=== PATIENT | female | born 1975 | race Caucasian/White ===

== ENCOUNTER 2020-03-14 12:35 | Inpatient (IN) | payer SELFPAY ==
[2020-03-14 12:37] VITALS: BP 102/80; PULSE 101; RESP 16; TEMP 36.6; O2SAT 97; BMI 21.6
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
[2020-03-14 12:51] VITALS: O2SAT 95
[2020-03-14 13:28] LABS: HCG Qualitative Urine. Negative (Negative)
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
--- NOTE | 2020-03-14 13:37 | PC.NURSE ---
pt continues to tell nursing staff [facility] contacted and she has not been accepted at their facility at this time
[2020-03-14] MEDS: LORazepam 2 mg Tablet PO (13:42)
--- NOTE | 2020-03-14 13:47 | PC.NURSE ---
pt tearful at this time. pt states she will stay for admission into stress unit. ed physician notified. security remains at bedside for pt's safety and staff safety
[2020-03-14] MEDS: nicotine 21 mg Patch 1 PATCH TRANSDERMA (13:59)
[2020-03-14 14:01] VITALS: PULSE 110; RESP 20; O2SAT 97
[2020-03-14 14:25] LABS: Basophils # 0.1 10^3/uL (0.0-0.1); Basophils % 0.6 %; Eosinophils % 0.2 %; Hematocrit 41.8 % (37.0-47.0); Lymphocytes # 2.3 10^3/uL (0.8-4.8); Lymphocytes % 28.6 %; Mean Corpuscular HGB Conc 33.5 g/dL (30.0-36.0); Mean Corpuscular Hemoglobin 32.5 pg (28.0-34.0); Mean Platelet Volume 9.6 fL (7.4-10.4); Monocytes # 0.3 10^3/uL (0.2-0.9); Monocytes % 3.4 %; Neutrophils # 5.49 10^3/uL (1.8-7.7); Neutrophils % 67.1 %; Nucleated Red Blood Cells % 0 %; Platelet Count 432 10^3/cmm (130-400); Red Blood Count 4.31 10^6/uL (4.1-5.3); Red Cell Distribution Width 12.3 % (12.1-15.1); White Blood Count 8.2 10^3/uL (4.0-10.0)
[2020-03-14 14:44] LABS: Alanine Aminotransferase 24 U/L (0-33); Albumin Level 4.3 g/dL (3.5-5.2); Alkaline Phosphatase 103 IU/L (35-105); Anion Gap 19.5 (5-19); Aspartate Amino Transferase 25 U/L (0-32); Blood Urea Nitrogen 9 mg/dL (6-20); Calcium 9.5 mg/dL (8.5-10.5); Carbon Dioxide 24 mmol/L (22-29); Chloride 105 mmol/L (98-107); Glomerular Filtration Rate 134.7 mL/min (90-130); Glucose 102 mg/dL (65-115); Osmolality Calculated 294 mOsm/kg (285-295); Potassium 4.5 mmol/L (3.5-5.1); Sodium 144 mmol/L (136-145); Total Bilirubin 0.3 mg/dL (0.15-1.2); Total Protein 7.3 g/dL (6.6-8.7)
[2020-03-14 14:45] LABS: Acetaminophen < 5.0 ug/mL (10-30); Alcohol Level 370 mg/dL (0-10); Salicylate < 0.3 mg/dL (3-10)
[2020-03-14 15:05] LABS: Amphetamines Screen Urine Negative (Negative); Barbiturates Screen Urine Negative (Negative); Benzodiazepines Screen Urine Negative (Negative); Cocaine Screen Urine Negative (Negative); Opiate Screen Urine Negative (Negative); PCP Screen Urine Negative (Negative); THC Screen Urine Positive (Negative)
[2020-03-14] MEDS: multivitamin therapeutic Tablet 1 TAB PO (15:42)
[2020-03-14] MEDS: thiamine 100 mg Tablet PO (15:43)
[2020-03-14 17:20] VITALS: BP 122/80; PULSE 116; RESP 18; TEMP 36.5; O2SAT 95
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
--- NOTE | 2020-03-14 20:54 | PC.NURSE ---
The patient reported she has seizures. At 2004 the patient had an episode during which her arms and fingers stiffened. She did not lose consciousness. She was not incontinent. Duration of the episode was about one minute. The patient said the episode was a seizure.
[2020-03-14 21:03] VITALS: BP 122/80
[2020-03-14] MEDS: cloNIDine 0.1 mg Tablet 0.2 MG PO (21:03)
[2020-03-14] MEDS: trazodone 50 mg Tablet PO (21:03)
[2020-03-14] MEDS: CLONazepam 1 mg Tablet PO (21:03)
[2020-03-14] MEDS: nicotine 2 mg Gum BUCCAL (21:03)
[2020-03-14 22:00] VITALS: BP 109/79; PULSE 106; RESP 18; TEMP 36.8; O2SAT 97
[2020-03-15 06:00] VITALS: BP 136/75; PULSE 125; RESP 18; TEMP 36.6; O2SAT 97
[2020-03-15] MEDS: levothyroxine 150 mcg Tablet 175 MCG PO (08:42)
[2020-03-15] MEDS: CLONazepam 1 mg Tablet PO ×4 (08:42→21:14)
[2020-03-15] MEDS: levothyroxine 25 mcg Tablet PO (08:42)
[2020-03-15] MEDS: nicotine 21 mg Patch 1 PATCH TRANSDERMA (08:44)
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
[2020-03-15 13:34] VITALS: BP 124/80; PULSE 98; RESP 18; TEMP 36.8
[2020-03-15 21:11] VITALS: BP 115/79
[2020-03-15] MEDS: cloNIDine 0.1 mg Tablet 0.2 MG PO (21:11)
[2020-03-15] MEDS: trazodone 50 mg Tablet PO (21:13)
[2020-03-15] MEDS: hyDROXYzine 25 mg Capsule 50 MG PO (21:13)
[2020-03-15 22:00] VITALS: BP 115/79; PULSE 103; RESP 23; TEMP 36.8; O2SAT 98
[2020-03-16 05:47] VITALS: BP 115/79; PULSE 103; RESP 23; TEMP 36.8; O2SAT 98
[2020-03-16 06:24] VITALS: BP 97/61; PULSE 63; RESP 16; TEMP 36.9; O2SAT 63
[2020-03-16] MEDS: nicotine 21 mg Patch 1 PATCH TRANSDERMA (07:09)
[2020-03-16] MEDS: CLONazepam 1 mg Tablet PO ×4 (09:25→21:30)
[2020-03-16] MEDS: levothyroxine 150 mcg Tablet PO (09:26)
[2020-03-16] MEDS: levothyroxine 25 mcg Tablet PO (09:26)
[2020-03-16 14:00] VITALS: BP 122/78; PULSE 87; RESP 18; TEMP 37.1; O2SAT 100
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
[2020-03-16 21:27] VITALS: BP 123/91
[2020-03-16] MEDS: cloNIDine 0.1 mg Tablet 0.2 MG PO (21:27)
[2020-03-16] MEDS: trazodone 50 mg Tablet PO (21:30)
[2020-03-16] MEDS: nicotine 2 mg Gum BUCCAL (21:34)
[2020-03-16] MEDS: hyDROXYzine 25 mg Capsule 50 MG PO (21:34)
[2020-03-16 22:00] VITALS: BP 123/91; PULSE 108; RESP 22; TEMP 36.7; O2SAT 98
[2020-03-17 06:00] VITALS: BP 116/78; PULSE 72; RESP 19; TEMP 36.6; O2SAT 98
--- NOTE | 2020-03-17 08:07 | P.DS_ITS ---
Diagnoses at Discharge Discharge Diagnosis (1) Depression: Status: Acute Problem details: Currently resolved. (2) Alcohol abuse: Status: Acute Problem details: Patient presently sober. She intends to continue back home. Reason for Visit Reason for Visit: EMOTIONAL DISTRESS/ [employer]ING [employer] Hospital Course Hospital Course The patient's made remarkable head right away and has resources and means to escape from her intrapsychic detention. Involuntary Hold Information 96 Hour Hold: 96 Hour Involuntary Admission: No Mental Status Exam MSE Comments: The patient is a diminutive alert interpersonally engaged female appearing younger than her stated age. Eye contact is good. She is mildly tremulous which she attributes to not having her clonazepam for her seizures. The information she provides is internally consistent and logical. However we cannot verify any of the information she provides and some of the information is rather sensational. We are left with no choice but to assume she is a reliable informant at this time. Appearance: hygiene is good; no gross neurological deficits, gait is unremarkable; AIMS=0 Speech: Speech is of normal rate and rhythm and easily understood. Thought processes: Thought processes are abstract. Judgment is adequate for safety. Associations: intact Psychotic processes: There is no indication of guarding or paranoia. There is no attention to the internal stimuli. Auditory and visual hallucinations are denied. Judgment: Insight is fair. Problem solving skills are adequate for safety. Orientation: The patient is oriented to person, place time and situation. Memory: no deficits noted in immediate, intermediate, or remote spheres. Attention: The patient is alert and interpersonally engaged. Language: Verbalizations are coherent. Fund of knowledge: Fund of knowledge is adequate. Affect/Mood: Affect is consistent with a euthymic mood. Denied suicidal ideation Affective range appropriate. Psychosis: perception unimpaired except through cognitive distortion; reality testing intact. Physical Exam Narrative: EXAM NARRATIVE: Const: COMMON NORMALS: no acute distress, patient oriented x3 and healthy appearing GENERAL APPEARANCE: disheveled HENMT: COMMON NORMALS: normocephalic and atraumatic HEAD & SCALP: normocephalic and atraumatic Eye: COMMON NORMALS: Equal, round and reactive pupils present and EOMs intact bilaterally PUPIL: Yes Equal, round and reactive pupils present Neck/C-Spine: COMMON NORMALS: full ROM and supple Chest: COMMONS NORMALS: normal inspection of the chest and normal palpation of entire chest wall Resp: COMMON NORMALS: normal respiratory effort, No retractions, No use of accessory muscles and clear to auscultation bilaterally Cardio: COMMON NORMALS: regular rate, regular rhythm and No murmurs present (Cardio) RATE: regular rate RHYTHM: regular rhythm GI: COMMON NORMALS: Normal to inspection, nondistended, normoactive bowel sounds present, Soft to palpation, non-tender and no masses Extremity: COMMON NORMALS: normal to inspection and full ROM Neuro: COMMON NORMALS: patient oriented x3, moves all extremities and no focal motor deficits Psych: COMMON NORMALS: mental status grossly normal, Normal thought process present and cooperative Skin: COMMON NORMALS: no rashes or lesions noted and no wounds GENERAL SKIN EXAM: no rashes or lesions noted Discharge Data Vitals: Last Vital Signs Temp 97.8 F 03/17/20 06:00 Pulse 72 03/17/20 06:00 Resp 19 H 03/17/20 06:00 BP 116/78 03/17/20 06:00 Pulse Ox 98 03/17/20 06:00 Discharge Plan Discharge Patient Disposition: Home, Self-Care Condition: Stable Prescriptions: Continued levothyroxine 175 mcg Tablet 175 mcg PO DAILY 30 Days Qty: 30 RF: 0 trazodone 50 mg Tablet 50 mg PO BEDTIME 30 Days Qty: 30 RF: 0 Klonopin 1 mg Tablet See Rx Instructions .ROUTE .COMPLEX 30 Days Qty: 120 RF: 0 clonidine HCl 0.2 mg Tablet 0.2 - 0.4 mg PO BEDTIME 30 Days Qty: 60 RF: 0 Discontinued dextroamphetamine-amphetamine 20 mg Tablet 20 mg PO BID RF: 0 Excedrin Migraine 250-250-65 mg Tablet 1 tab PO PRN RF: 0 biotin 2 cap PO DAILY RF: 0 Discharge Orders: Discharge Order (Routine); Ordered 03/17/20 Ordered By: Romie Grubbs Discharge Diet: Advance as tolerated Discharge Activity: Resume usual activity Discharge Attestations NPU Time Spent in Discharge Care*: greater than 30 min Specific Discharge Activities: Specific discharge activities: educating patient, educating and/or supporting family/caregiver, discussing with case resource manager/social workers/dc planners, documenting/other paperwork and evaluating patient/reviewing data Status at Discharge: Cognitive status at discharge: cognitively intact , Behavioral status at discharge: cooperative , Functional status at discharge: independent ambulation Overall status at discharge: patient is back to baseline Coding Level of Care Code Acute Sheep Clipper for g Fwd Diagnoses Depression F32.9 Alcohol abuse F10.10
[2020-03-17] MEDS: CLONazepam 1 mg Tablet PO (08:40)
[2020-03-17] MEDS: levothyroxine 150 mcg Tablet PO (08:40)
[2020-03-17] MEDS: levothyroxine 25 mcg Tablet PO (08:40)
[2020-03-17] MEDS: nicotine 2 mg Gum BUCCAL (08:42)
[2020-03-17 08:56] VITALS: BP 116/78; PULSE 72; RESP 19; TEMP 36.6; O2SAT 98
[2020-03-17 10:55] VITALS: BP 116/78; PULSE 72; RESP 19; TEMP 36.6; O2SAT 98
== END 2020-03-17 11:15 | disposition home or self-care (01) | DRG 897 ==
LOC: ER 16:30 → NP 16:52
PROVIDERS: Emergency Medicine; Admitting Provider Psychiatry & Neurology Psychiatry; Visit Provider Psychiatry & Neurology Psychiatry
DX: F10.229 Alcohol dependence with intoxication, unspecified (principal); F32.9 Major depressive disorder, single episode, unspecified; Y90.8 Blood alcohol level of 240 mg/100 ml or more
CPT/HCPCS: 12345; 36415; 80053; 80306; 80307; 81025; 85025; 99284